=== PATIENT | female | born 1950 | race American Indian/Alaskan Native ===

== ENCOUNTER 2019-05-04 19:56 | Emergency (ER) | payer MEDICARE ==
--- NOTE | 2019-05-04 23:13 | XRay Report ---
KNEE, 3 VIEWS INDICATION / CLINICAL INFORMATION: fall with pain and swelling.. COMPARISON: None available. FINDINGS: Moderate to severe degenerative changes are seen in all 3 compartments of the knee. The bones are dem ineralized. No visible fracture, dislocation, or significant joint effusion is identified. IMPRESSION: Severe degenerative change. No convincing evidence for fracture. Signer Name: Jacquelyn Echols MD Signed: 05/04/2019 11:09 PM Workstation Name: [id number]
[2019-05-05] MEDS ORDERED: traMADol 50 MG TAB PO ONE (00:04)
[2019-05-05] MEDS ORDERED: IBUPROFEN 600 MG TAB PO ONE (00:04)
--- NOTE | 2019-05-05 00:06 | Emergency Department Report ---
ED Lower Extremity HPI - General Chief Complaint: Fall Stated Complaint: FALL/LEFT KNEE INJURY/PAIN Time Seen by Provider: 05/05/19 00:02 Source: patient Mode of arrival: Ambulatory Limitations: Physical Limitation - History of Present Illness Initial Comments: 68-year-old -[place] female presents to the emergency room for a fall tonight. Patient states that her knee gave out and she fell on her left knee. Patient reports she is now walking with a walker because when she walks she puts pressure on it and it hurts. Patient has no obvious deformity. Patient denies any dizziness change of vision feeling unsteady before she fell. Patient reports she was walking her dog. Complaint: knee injury -: This evening Injury: Knee: Left Type of Injury: blunt Place: home Severity: severe Severity scale (0 -10): 10 (With walking) Worsens With: movement Context: direct blow Associated Symptoms: swelling, able to partially bear weight - Related Data Home Medications Medication Instructions Recorded Confirmed Last Taken Furosemide [Lasix] 20 mg PO QDAY 12/29/14 01/06/15 01/05/15 11:00 Glimepiride [Amaryl] 2 mg PO BID 12/29/14 01/06/15 01/05/15 11:00 Levothyroxine [Synthroid] 25 mcg PO QAM 12/29/14 01/06/15 01/06/15 05:30 Losartan [Cozaar] 50 mg PO QDAY 12/29/14 01/06/15 01/06/15 05:30 Pravastatin [Pravachol] 40 mg PO QHS 12/29/14 01/06/15 01/04/15 20:30 metFORMIN [Glucophage] 500 mg PO BID 12/29/14 01/06/15 01/05/15 11:00 Previous Rx's Medication Instructions Recorded Last Taken Type Ibuprofen [Motrin] 800 mg PO Q8HR PRN #60 tablet 01/06/15 Unknown Rx oxyCODONE /ACETAMINOPHEN [Percocet 1 tab PO Q6HR PRN #30 tablet 01/06/15 Unknown Rx 5/325] Meloxicam [Mobic] 7.5 mg PO QDAY #20 tablet 05/05/19 Unknown Rx Allergies Allergy/AdvReac Type Severity Reaction Status Date / Time Penicillins Allergy Anaphylaxis Verified 12/29/14 12:28 shellfish derived Allergy Anaphylaxis Verified 12/29/14 12:28 ED Review of Systems ROS: Stated complaint: FALL/LEFT KNEE INJURY/PAIN Other details as noted in HPI Comment: All other systems reviewed and negative ED Past Medical Hx - Past Medical History Previous Medical History?: Yes Hx Hypertension: Yes (x 10 yrs) Hx Heart Attack/AMI: No Hx Congestive Heart Failure: Yes (prior to 2002) Hx Diabetes: Yes (since 2002) Hx GERD: Yes (past hx) Hx Renal Disease: No Hx of Cancer: Yes (cervical remission) Hx Arthritis: Yes (right knee, lower back) Hx Seizures: No Hx Asthma: No Hx COPD: Yes (No inhaler use) - Surgical History Past Surgical History?: Yes Hx Pacemaker: Yes (in 2002) - Social History Smoking Status: Never Smoker Substance Use Type: None - Medications Home Medications: Home Medications Medication Instructions Recorded Confirmed Last Taken Type Furosemide [Lasix] 20 mg PO QDAY 12/29/14 01/06/15 01/05/15 11:00 History Glimepiride [Amaryl] 2 mg PO BID 12/29/14 01/06/15 01/05/15 11:00 History Levothyroxine [Synthroid] 25 mcg PO QAM 12/29/14 01/06/15 01/06/15 05:30 History Losartan [Cozaar] 50 mg PO QDAY 12/29/14 01/06/15 01/06/15 05:30 History Pravastatin [Pravachol] 40 mg PO QHS 12/29/14 01/06/15 01/04/15 20:30 History metFORMIN [Glucophage] 500 mg PO BID 12/29/14 01/06/15 01/05/15 11:00 History Ibuprofen [Motrin] 800 mg PO Q8HR PRN #60 tablet 01/06/15 Unknown Rx oxyCODONE /ACETAMINOPHEN [Percocet 1 tab PO Q6HR PRN #30 tablet 01/06/15 Unknown Rx 5/325] Meloxicam [Mobic] 7.5 mg PO QDAY #20 tablet 05/05/19 Unknown Rx ED Physical Exam - General Limitations: Physical Limitation General appearance: alert, in no apparent distress - Head Head exam: Present: atraumatic, normocephalic - Eye Eye exam: Present: normal appearance - ENT ENT exam: Present: mucous membranes moist - Neck Neck exam: Present: normal inspection, full ROM - Expanded Lower Extremity Exam Left Knee exam: Present: swelling. Absent: tenderness, dislocation, erythema, posterior draw sign, full knee extension (Secondary to pain) Lower Leg exam: Present: normal inspection, full ROM. Absent: tenderness Neuro vascular tendon exam: Present: no vascular compromise - Back Exam Back exam: Present: normal inspection - Neurological Exam Neurological exam: Present: alert, oriented X3 - Psychiatric Psychiatric exam: Present: normal affect, normal mood - Skin Skin exam: Present: warm, dry, intact, normal color. Absent: rash ED Course Vital Signs 05/04/19 20:10 Temperature 98.2 F Pulse Rate 96 H Respiratory 18 Rate Blood Pressure 157/64 O2 Sat by Pulse 95 Oximetry ED Lower Extremity MDM - Radiology Data Radiology results: report reviewed Patient: LA HOLDER MR#: [id number] : 1950 Acct:[id number] Age/Sex: 68 / F ADM Date: 05/04/19 Loc: ED Attending Dr: Ordering Physician: ED MD VIMAL Date of Service: 05/04/19 Procedure(s): XR knee 3V LT Accession Number(s): [id number] cc: ED MD VIMAL Fluoro Time In Minutes: KNEE, 3 VIEWS INDICATION / CLINICAL INFORMATION: fall with pain and swelling.. COMPARISON: None available. FINDINGS: Moderate to severe degenerative changes are seen in all 3 compartments of the knee. The bones are demineralized. No visible fracture, dislocation, or significant joint effusion is identified. IMPRESSION: Severe degenerative change. No convincing evidence for fracture. Signer Name: Jacquelyn Echols MD Signed: 05/04/2019 11:09 PM Workstation Name: [id number] Transcribed By: Dictated By: Jacquelyn Echols MD Electronically Authenticated By: Jacquelyn Echols MD Signed Date/Time: 05/04/192308 DD/ 07 TD/TT: - Medical Decision Making 68-year-old -[place] female presents to the emergency room for a fall tonight. Patient states that her knee gave out and she fell on her left knee. Patient reports she is now walking with a walker because when she walks she puts pressure on it and it hurts. Patient has no obvious deformity. Patient denies any dizziness change of vision feeling unsteady before she fell. Patient reports she was walking her dog. X-ray shows severe degenerative changes no convincing fractures. Patient will be given tramadol and ibuprofen for pain management while here. Patient be discharged home in a knee immobilizer and a prescription for Mobic and to follow-up with her primary care provider Critical care attestation.: If time is entered above; I have spent that time in minutes in the direct care of this critically ill patient, excluding procedure time. ED Disposition Clinical Impression: Fall, Degenerative joint disease of knee, left, Contusion of left knee Disposition: DC- TO HOME OR SELFCARE Is pt being admited?: No Does the pt Need Aspirin: No Condition: Stable Instructions: Osteoarthritis (ED), Fall Prevention for Older Adults (ED) Additional Instructions: X-ray is negative for any fractures or dislocation. It does show that you have severe degenerative joint disease which is osteoarthritis. Recommend taking pain medication the Mobic wear your knee immobilizer for a few days and then try to do range of motion. Which is bending the knee and straighten it. Also follow-up with orthopedic provider if her symptoms persist or gets worse Prescriptions: Meloxicam [Mobic] 7.5 mg PO QDAY #20 tablet Referrals: PRIMARY MD PANCHITO [Primary Care Provider] - 3-5 Days MARIO VEGA MD [Staff Physician] - 3-5 Days
[2019-05-05 01:08] VITALS: BP 139/80
== END 2019-05-05 01:09 | disposition home or self-care (01) ==
LOC: ED 19:56
DX: S80.02XA Contusion of left knee, initial encounter (principal); M17.12 Unilateral primary osteoarthritis, left knee; I11.0 Hypertensive heart disease with heart failure; I50.9 Heart failure, unspecified; E11.9 Type 2 diabetes mellitus without complications; K21.9 Gastro-esophageal reflux disease without esophagitis; Z95.0 Presence of cardiac pacemaker; Z79.899 Other long term (current) drug therapy; Z88.0 Allergy status to penicillin; Z91.013 Allergy to seafood; W18.39XA Other fall on same level, initial encounter; Y93.89 Activity, other specified; Y92.89 Other specified places as the place of occurrence of the external cause; Y99.8 Other external cause status